=== PATIENT | female | born 1990 | race Caucasian/White ===

== ENCOUNTER → 2022-12-30 14:21 | Outpatient (BNVA) | payer OTHER, SELFPAY | PROVIDERS: Family Provider Family Medicine; Visit Provider Psychiatry & Neurology Neurology | DX: Z13.228 Encounter for screening for other metabolic disorders (principal) | CPT/HCPCS: 80061; 83036 ==

== ENCOUNTER → 2023-02-22 10:45 | Outpatient (BNVA) | payer MEDICAID, SELFPAY ==
[2023-01-13 16:02] VITALS: BP 125/82; BMI 31.8
== END ==
PROVIDERS: Family Provider Family Medicine; Visit Provider Obstetrics & Gynecology
DX: Z11.3 Encounter for screening for infections with a predominantly sexual mode of transmission (principal)
CPT/HCPCS: 86803; 87340; 87806

== ENCOUNTER 2023-03-11 10:37 | Day surgery (SDC) | payer BC, MEDICAID, SELFPAY ==
[2023-01-13 16:02] VITALS: BP 125/82; BMI 31.8
[2023-03-10 16:04] VITALS: BMI 27.8
[2023-03-11] VITALS (12 sets, daily range): BP systolic 97–125; BP diastolic 62–87; PULSE 49–92; RESP 16–20; TEMP 36.1–36.6; O2SAT 91–100
--- NOTE | 2023-03-11 04:37 | W.PM.OPSFHP ---
Same Day Surgery H&P Indication for Procedure/HPI DATE OF PROCEDURE: March 11, 2023 CHIEF COMPLAINT/INDICATIONFOR SURGICAL PROCEDURE: abnormal pap - high-grade squamous intraepithelial lesion PREOP DIAGNOSIS: abnormal pap - high-grade squamous intraepithelial lesion PLANNED PROCEDURE: Operation Date: 03/11/23 13:00 Proposed Procedures p Loop electrosurgical excision procedure) 74458,R87.613(Not Applicable) - Taqueria Blake MD 32 y.o. SA1 Has paragard IUD in place Was seen at a clinic in [place] Had abnormal pap - high-grade squamous intraepithelial lesion Was told she requires a LEEP cervical excision now scheduled for removal of paragard intrauterine device and electrosurgical loop excision of cervix No c/o No bleeding, pain PMHx: depression PSHx: none Meds: escitalopram Trazodone Medications/Allergies* Home Medications Medication Instructions Recorded Confirmed Type copper 380 square mm intrauterine 380 mm2 intrauterine DIRECTED 02/17/23 03/10/23 History device (ParaGard T 380A) loratadine 10 mg tablet (Claritin) 10 mg PO DAILY PRN Allergic 03/10/23 03/10/23 History Symptoms Allergies/Adverse Reactions Allergy/AdvReac Type Severity Reaction Status Date / Time milk Allergy Intermediate Unknown Verified 03/10/23 13:56 penicillin G Allergy Mild Unknown Verified 03/10/23 13:56 Pertinent History/Comorbid Conditions* Medical History (Updated 02/20/23 @ 15:54 by Tyra Villareal MD) Marital conflict involving divorce Psychiatric care Family History (Updated 02/17/23 @ 08:40 by Ghazala Chance LPN) Diabetes Grandmother Mother Heart disease Mother Breast cancer Grandmother Hypertension Mother Father Stroke Grandmother Denies family history of Colon cancer Ovarian cancer Hypercholesteremia Uterine cancer Thyroid disease Pertinent Exam Findings alert, oriented x 3, clear to auscultation bilaterally and regular rate & rhythm Recommendations Surgery/Procedure today Coding Level of Care Code Acute Code for Chg Fwd Diagnoses Time Spent (min) 20
--- NOTE | 2023-03-11 11:08 | P.ANESASSM_ITS ---
Pre-Anesthetic Assessment Height/Weight: Height 1.63 m Weight 73.482 kg Temp Pulse Resp BP Pulse Ox O2 Del Method 97.8 F 84 18 123/70 100 Room Air 03/11/23 11:07 03/11/23 11:07 03/11/23 11:07 03/11/23 11:07 03/11/23 11:07 03/11/23 11:07 Preop Diagnosis: abnormal pap Operation Date: 03/11/23 11:00 Proposed Procedures p Loop electrosurgical excision procedure) 25120,R87.613(Not Applicable) - Taqueria Blake MD Familial anesthetic complications: None Was Beta Rose taken within 24 hours: N/A Was Clonidine taken within 24 hours: N/A Last intake: > 8hrs Social Tobacco and No alcohol Exam alert, oriented x 3, clear to auscultation bilaterally and regular rate & rhythm Airway Mallampati: Class II Dentition: full Neuropsych Depression Anesthetic Plan ASA status: 2 Anesthesia: General Risk of > 500 ml blood loss (7ml/kg in children): No Medications/Allergies Home Medications Medication Instructions Recorded Confirmed Last Taken Type escitalopram oxalate 5 mg tablet 5 mg PO DAILY 30 days #30 tabs 02/10/23 03/10/23 Unknown Rx trazodone 50 mg tablet 50 mg PO .qhs 30 days #30 tabs 02/10/23 03/10/23 02/17/23 Rx copper 380 square mm intrauterine 380 mm2 intrauterine DIRECTED 02/17/23 03/10/23 Unknown History device (ParaGard T 380A) loratadine 10 mg tablet (Claritin) 10 mg PO DAILY PRN Allergic 03/10/23 03/10/23 03/10/23 History Symptoms Allergies Allergy/AdvReac Type Severity Reaction Status Date / Time milk Allergy Intermediate Unknown Verified 03/10/23 13:56 penicillin G Allergy Mild Unknown Verified 03/10/23 13:56 [facility] Anesthesia Medical History Marital conflict involving divorce Psychiatric care Family History Grandmother Breast cancer Stroke Diabetes Mother Heart disease Hypertension Diabetes Father Hypertension Denies family history of Colon cancer Ovarian cancer Hypercholesteremia Uterine cancer Thyroid disease Female Reproductive History Date of last menstrual period: 03/09/23 Data Anesthesia Cardiac Studies: No Data to Display
[2023-03-11] MEDS: sodium chloride 0.9% 1,000 ML 30 ML IV (11:15)
--- NOTE | 2023-03-11 11:23 | W.PM.OPSUD ---
Surgery/Procedure H&P Update DATE OF PROCEDURE: March 11, 2023 DATE H&P PERFORMED: 03/10/23 H&P UPDATE INFORMATION: I have reviewed H&P completed within last 30 days, I have examined patient prior to procedure and No changes to prior documentation PREOP DIAGNOSIS: abnormal pap PLANNED PROCEDURE: Operation Date: 03/11/23 11:00 Proposed Procedures p Loop electrosurgical excision procedure) 38459,R87.613(Not Applicable) - Taqueria Blake MD
[2023-03-11 11:28] LABS: OR HCG Qualitative Urine Negative (Negative)
[2023-03-11] MEDS: vasopressin 20 unit/mL INJ 4 UNIT INJECTION (12:07)
--- NOTE | 2023-03-11 12:30 | PM.OP ---
Operative Report Date of procedure: March 11, 2023 Pre-op diagnosis: Preop Diagnosis abnormal pap; removal of paragard intrauterine device Post-op diagnosis: same Post-op findings: paragard intrauterine device, complete and intact, discarded Procedure done: Removal of paragard intrauterine device Electrosurgical loop excision of cervix Specimens removed/disposition: cervical excision, sent to pathology paragard intrauterine device, complete and intact, discarded Surgeon: Taqueria Blake MD Anesthesia: MAC Estimated blood loss (mL): 5 Complications: none Brief History: 32 y.o. with Pap c/w high-grade squamous intraepithelial lesion, also desire paragard IUD removal Procedure: Informed consent signed The patient was taken to the operating room and placed supine on the table.? MAC anesthesia was induced.? The patient was placed in dorsolithotomy position.? The patient was prepped and draped in the usual sterile fashion.? A bivalve speculum was placed in the vagina.? The anterior lip of the cervix was grasped with a single toothed tenaculum.? The paragard IUD string was visible at the cervical os.? The IUD was removed, complete and intact, and discarded.? The cervix was then infiltrated at the cervicovaginal junction with 20 U of vasopressin to decrease bleeding.? Electrosurgical loop excision of the cervix was done to a depth of approximately 5 mm.? The specimen was sent to pathology.? There was no bleeding.? Excellent hemostasis was noted.? All instruments were then removed.? The patient was placed supine, awakened, and taken to the recovery room. Postoperative condition:? stable EBL:? less than 5 cc Complications:? none Sponge and instrument counts were correct x two
[2023-03-11] MEDS: fentaNYL 50 mcg/mL INJ 2mL IVP (12:39)
--- NOTE | 2023-03-11 13:23 | ANE.PACU2 ---
Inpatient post-anesthesia follow up: Airway intact: Yes Vital signs: Temperature 97.0 F Pulse Rate 85 Respiratory Rate 17 Blood Pressure 113/82 Pulse Oximetry 98 Oxygen Delivery Me thod Nasal Cannula Oxygen Flow Rate 1 Fraction of Inspir ed Oxygen Hydration adequate: Yes Nausea and vomiting: Yes Pain level: 1 Mental status: Baseline
== END 2023-03-11 13:51 | disposition home or self-care (01) ==
PROVIDERS: Anesthesiology; Family Provider Family Medicine; Visit Provider Obstetrics & Gynecology
PROC: 0UBC7ZZ Excision of Cervix, Via Natural or Artificial Opening (ICD-10-PCS; CPT 57522; principal; 2023-03-11 10:50)
DX: N87.1 Moderate cervical dysplasia (principal); Z79.899 Other long term (current) drug therapy; Z88.0 Allergy status to penicillin
CPT/HCPCS: 57461; 81025; 84703; 88307; J1100; J1200; J1885; J2250; J2405; J2704; J3010; J3490; J7030

== ENCOUNTER → 2023-04-21 14:15 | Outpatient (BNVA) | payer OTHER, SELFPAY ==
[2023-01-13 16:02] VITALS: BP 125/82; BMI 31.8
== END ==
PROVIDERS: Family Provider Family Medicine; Visit Provider Psychiatry & Neurology Psychiatry
DX: Z79.899 Other long term (current) drug therapy (principal); F33.2 Major depressive disorder, recurrent severe without psychotic features
CPT/HCPCS: 80053; 84443; 85025

== ENCOUNTER → 2023-05-05 14:41 | Outpatient (BNVA) | payer MEDICAID, OTHER, SELFPAY ==
[2023-01-13 16:02] VITALS: BP 125/82; BMI 31.8
== END ==
PROVIDERS: Family Provider Family Medicine; Visit Provider Nurse Practitioner
DX: R23.3 Spontaneous ecchymoses (principal)
CPT/HCPCS: 82306; 82607

== ENCOUNTER → 2023-06-08 14:54 | Outpatient (BNVA) | payer MEDICAID, SELFPAY ==
[2023-01-13 16:02] VITALS: BP 125/82; BMI 31.8
== END ==
PROVIDERS: Family Provider Family Medicine; Visit Provider Obstetrics & Gynecology
DX: Z30.9 Encounter for contraceptive management, unspecified (principal); Z12.4 Encounter for screening for malignant neoplasm of cervix
CPT/HCPCS: 81025; 87624

== ENCOUNTER → 2023-09-14 15:51 | Outpatient (BNVA) | payer MEDICAID, SELFPAY ==
[2023-01-13 16:02] VITALS: BP 125/82; BMI 31.8
== END ==
PROVIDERS: Family Provider Family Medicine; PCP Nurse Practitioner; Visit Provider Obstetrics & Gynecology
DX: N87.1 Moderate cervical dysplasia (principal)
CPT/HCPCS: 88175

== ENCOUNTER 2023-11-04 10:29 | Day surgery (SDC) | payer MEDICAID, SELFPAY ==
[2023-01-13 16:02] VITALS: BP 125/82; BMI 31.8
[2023-11-04] VITALS (12 sets, daily range): BP systolic 95–118; BP diastolic 56–83; PULSE 72–105; RESP 16–94; TEMP 36.3–36.4; O2SAT 92–100; BMI 27.8
--- NOTE | 2023-11-04 01:39 | W.PM.OPSFHP ---
Same Day Surgery H&P Indication for Procedure/HPI DATE OF PROCEDURE: November 04, 2023 CHIEF COMPLAINT/INDICATIONFOR SURGICAL PROCEDURE: cervical dysplasia has paragard IUD in place PREOP DIAGNOSIS: cervical dysplasia; has paragard IUD in place PLANNED PROCEDURE: Operation Date: 11/04/23 12:25 Proposed Procedures p Cervical Conization(Not Applicable) - Taqueria Blake MD s Placement of Intrauterine Device(Not Applicable) - Taqueria Blake MD s Removal Of Interuterine Device(Not Applicable) - Taqueria Blake MD 32 y.o. h/o LEEP cervical excision, showed MARGARITA II had repeat pap c/w HGSIL now scheduled for conization of cervix patient has paragard IUD in place plan to remove and re-insert paragard IUD Medications/Allergies* Home Medications Medication Instructions Recorded Confirmed Type cholecalciferol (vitamin D3) 1,250 2,000 mcg PO DAILY 11/03/23 11/03/23 History mcg (50,000 unit) capsule Allergies/Adverse Reactions Allergy/AdvReac Type Severity Reaction Status Date / Time milk Allergy Intermediate Unknown Verified 11/03/23 10:07 penicillin G Allergy Mild Unknown Verified 11/03/23 10:07 Pertinent History/Comorbid Conditions* Medical History (Updated 09/25/23 @ 23:21 by Taqueria Blake MD) History of LEEP (loop electrosurgical excision procedure) of cervix complicating Marital conflict involving divorce Psychiatric care Family History (Updated 05/05/23 @ 14:15 by Karen Griffith LPN) Diabetes Grandmother Mother Clotting disorder Grandmother Sister Heart disease Mother Breast cancer Grandmother maternal and paternal- breast Hypertension Mother Father Stroke Grandmother paternal Denies family history of Colon cancer Ovarian cancer Hypercholesteremia Cancer Uterine cancer Thyroid disease Social History Smoking and tobacco/nicotine status: current some day tobacco/nicotine user Pertinent Exam Findings alert, oriented x 3, clear to auscultation bilaterally and regular rate & rhythm Recommendations Surgery/Procedure today Coding Level of Care Code Acute Code for Chg Fwd Time Spent (min) 20
[2023-11-04 11:31] LABS: OR HCG Qualitative Urine Negative (Negative)
[2023-11-04] MEDS: sodium chloride 0.9% 1,000 ML 30 ML IV (11:48)
--- NOTE | 2023-11-04 11:48 | W.PM.OPSUD ---
Surgery/Procedure H&P Update DATE OF PROCEDURE: November 04, 2023 DATE H&P PERFORMED: 11/04/23 H&P UPDATE INFORMATION: I have reviewed H&P completed within last 30 days, I have examined patient prior to procedure and No changes to prior documentation PREOP DIAGNOSIS: cervical dysplasia PLANNED PROCEDURE: Operation Date: 11/04/23 12:25 Proposed Procedures p Cervical Conization(Not Applicable) - Taqueria Blake MD s Placement of Intrauterine Device(Not Applicable) - Taqueria Blake MD s Removal Of Interuterine Device(Not Applicable) - Taqueria Blake MD
[2023-11-04] MEDS: ondansetron 2 mg/ML SDV 2 mL 4 MG IVP (11:54)
[2023-11-04] MEDS: midazolam 1 mg/mL INJ 2 mL 2 MG IVP (11:55)
--- NOTE | 2023-11-04 11:55 | ANES.PREANE2 ---
Pre-Anesthetic Assessment Height/Weight: Height 1.63 m Weight 73.482 kg Temp Pulse Resp BP Pulse Ox O2 Del Method 97.5 F L 72 18 116/78 100 Room Air 11/04/23 11:33 11/04/23 11:33 11/04/23 11:33 11/04/23 11:33 11/04/23 11:33 11/04/23 11:33 Preop Diagnosis: cervical dysplasia Operation Date: 11/04/23 12:25 Proposed Procedures p Cervical Conization(Not Applicable) - Taqueria Blake MD s Placement of Intrauterine Device(Not Applicable) - Taqueria Blake MD s Removal Of Interuterine Device(Not Applicable) - Taqueria Blake MD Familial anesthetic complications: None Was Beta Rose taken within 24 hours: N/A Was Clonidine taken within 24 hours: N/A Last intake: Intake Last Liquid Date 11/03/23 Last Liquid Time 23:59 Last Solid Date 11/03/23 Last Solid Time 23:59 Social No alcohol and No tobacco Exam alert, oriented x 3, clear to auscultation bilaterally and regular rate & rhythm Airway Mallampati: Class III Dentition: full Metabolic Morbid Obesity Anesthetic Plan ASA status: 1 Anesthesia: General Risk of > 500 ml blood loss (7ml/kg in children): No Medications/Allergies Home Medications Medication Instructions Recorded Confirmed Last Taken Type loratadine 10 mg tablet (Claritin) 10 mg PO DAILY PRN Allergic 06/09/23 11/04/23 11/03/23 Rx Symptoms #90 tabs escitalopram oxalate 20 mg tablet 20 mg PO DAILY 30 days #30 tabs 06/10/23 11/03/23 11/03/23 Rx trazodone 50 mg tablet 50 mg PO .qhs 30 days #30 tabs 06/10/23 11/03/23 Unknown Rx cholecalciferol (vitamin D3) 1,250 2,000 mcg PO DAILY 11/03/23 11/03/23 11/03/23 History mcg (50,000 unit) capsule Allergies Allergy/AdvReac Type Severity Reaction Status Date / Time milk Allergy Intermediate Unknown Verified 11/03/23 10:07 penicillin G Allergy Mild Unknown Verified 11/03/23 10:07 Current Medications Generic Name Dose Route Start Last Admin Trade Name Freq PRN Reason Stop Dose Admin Sodium Chloride 1,000 mls @ 30 mls/hr 11/04/23 11:30 11/04/23 11:48 Sodium Chloride 0.9% IV 11/05/23 11:29 30 mls/hr .Q24H MARCIAL Administration Ondansetron HCl 4 mg 11/04/23 11:18 11/04/23 11:54 Ondansetron 2 Mg/Ml Sdv 2 Ml IVP 4 mg Q5M PRN Administration NAUSEA AND VOMITING PFSH Anesthesia Medical History History of LEEP (loop electrosurgical excision procedure) of cervix complicating Marital conflict involving divorce Psychiatric care Family History Grandmother Breast cancer maternal and paternal- breast Stroke paternal Diabetes Clotting disorder Mother Heart disease Hypertension Diabetes Father Hypertension Sister Clotting disorder Denies family history of Colon cancer Ovarian cancer Hypercholesteremia Cancer Uterine cancer Thyroid disease Social History Smoking and tobacco/nicotine status: current some day tobacco/nicotine user Female Reproductive History Para: 1 Spontaneous abortions: Yes (1) Data Anesthesia Cardiac Studies: No Data to Display
--- NOTE | 2023-11-04 12:20 | PM.OP ---
Operative Report Date of procedure: November 04, 2023 Pre-op diagnosis: cervical dysplasia Post-op diagnosis: same Procedure done: cold-knife conization of cervix removal of old paragard IUD and placement of new paragard IUD Implants: paragard IUD Specimens removed/disposition: cervical cone Surgeon: Taqueria Blake MD Anesthesia: General Estimated blood loss (mL): 15 Complications: none Condition: stable Brief History: 33 y.o. h/o LEEP cervical excision in March 2023 showing MARGARITA II repeat Pap showed persistent HGSIL patient also has paragard IUD in place Procedure: Informed consent signed The patient was taken to the operating room and placed supine on the table. MAC anesthesia was induced. The patient was placed in dorsolithotomy position. The patient was prepped and draped in the usual sterile fashion. A bivalve speculum was placed in the vagina. The anterior lip of the cervix was grasped with a single toothed tenaculum. The Paragard IUD was removed complete and intact. The cervix was then infiltrated at the cervicovaginal junction with 20 U of vasopressin to decrease bleeding. The cold-knife conization was then performed with a scalpel, to a depth of approximately 1 cm. Bleeding was controlled with Monsel?s solution and placement of two 2-O Vicryl stitches. Excellent hemostasis was again noted. A new paragard IUD was placed into the uterine cavity. A 4 cm string was left at the cervical os. All instruments were then removed. The patient was placed supine, awakened, and taken to the recovery room. Postoperative condition: stable EBL: 15 cc Complications: none Sponge and instrument counts were correct x two
[2023-11-04] MEDS: vasopressin 20 unit/mL INJ INJECTION (12:42)
[2023-11-04] MEDS: albuterol 2.5 mg/3 mL Neb INHALATION (13:34)
[2023-11-04] MEDS: fentaNYL 50 mcg/mL INJ 2mL IVP (13:53)
[2023-11-04] MEDS: ketorolac 30 mg/mL INJ IVP (14:26)
[2023-11-04] MEDS: acetaminophen 500 mg Tablet PO (15:22)
== END 2023-11-04 15:46 | disposition home or self-care (01) ==
PROVIDERS: Anesthesiology; PCP Nurse Practitioner; Visit Provider Obstetrics & Gynecology
PROC: 0UBC7ZZ Excision of Cervix, Via Natural or Artificial Opening (ICD-10-PCS; CPT 57520; principal; 2023-11-04 12:15)
PROC: (CPT 58300; 2023-11-04 12:15)
PROC: (CPT 58301; 2023-11-04 12:15)
DX: N87.1 Moderate cervical dysplasia (principal); E66.01 Morbid (severe) obesity due to excess calories; F17.200 Nicotine dependence, unspecified, uncomplicated
CPT/HCPCS: 57520; 58300; 81025; 84703; 88307; A7003; A7015; J1100; J1885; J2250; J2405; J2704; J3010; J3490; J7030; J7613

== ENCOUNTER → 2024-02-29 11:15 | Outpatient (BNVA) | payer OTHER, SELFPAY ==
[2023-01-13 16:02] VITALS: BP 125/82; BMI 31.8
== END ==
PROVIDERS: PCP Nurse Practitioner; Visit Provider Obstetrics & Gynecology
DX: Z01.419 Encounter for gynecological examination (general) (routine) without abnormal findings (principal)
CPT/HCPCS: 87624

== ENCOUNTER → 2024-04-19 15:31 | Outpatient (BNVA) | payer MEDICAID, SELFPAY ==
[2023-01-13 16:02] VITALS: BP 125/82; BMI 31.8
== END ==
PROVIDERS: PCP Nurse Practitioner; Visit Provider Nurse Practitioner
DX: Z00.00 Encounter for general adult medical examination without abnormal findings (principal); Z20.2 Contact with and (suspected) exposure to infections with a predominantly sexual mode of transmission
CPT/HCPCS: 80053; 84443; 85025; 87491; 87591

== ENCOUNTER → 2024-07-05 15:16 | Outpatient (BNVA) | payer MEDICAID, SELFPAY ==
[2023-01-13 16:02] VITALS: BP 125/82; BMI 31.8
== END ==
PROVIDERS: PCP Nurse Practitioner; Visit Provider Obstetrics & Gynecology
DX: Z01.419 Encounter for gynecological examination (general) (routine) without abnormal findings (principal)
CPT/HCPCS: 87624